=== PATIENT | female | born 1995 | race Caucasian/White ===

== ENCOUNTER 2017-07-25 20:31 | Emergency (ER) | payer BC ==
[~2017-07-25] VITALS: Ht 167.6 cm; Wt 143.0 kg
[2017-07-25] MEDS ORDERED: ONDANSETRON 2MG/ML, 2ML IVPush ONE (21:00)
[2017-07-25] MEDS ORDERED: SODIUM CHLORIDE 0.9% 1,000ML IVBOLUS ONE (21:00)
[2017-07-25] MEDS ORDERED: SODIUM CHLORIDE FLUSH 10ML SYR IVF ONE (21:00)
[2017-07-25 21:12] LABS: RAPID INFLUENZA A Negative (Negative); RAPID INFLUENZA B Negative (Negative)
[2017-07-25 21:17] LABS: BASOPHILS # (AUTO) 0.03 x10^3/uL (0-0.1); BASOPHILS % (AUTO) 0 % (0-1); EOSINOPHILS # (AUTO) 0.02 x10^3/uL (0-0.4); EOSINOPHILS % (AUTO) 0 % (1-7); LYMPHOCYTES # (AUTO) 1.67 x10^3/uL (1-3.4); LYMPHOCYTES % (AUTO) 17 % (22-44); MD NO; MEAN CORPUSCULAR HEMOGLOBIN 26.1 pg (27.0-34.8); MONOCYTES # (AUTO) 0.66 x10^3/uL (0.2-0.8); MONOCYTES % (AUTO) 7 % (2-9); NEUTROPHILS # (AUTO) 7.73 x10^3/uL (1.8-6.8); NEUTROPHILS % (AUTO) 76 % (42-75); PLATELET COUNT 325 x10^3/uL (130-400); RED BLOOD COUNT 5.04 x10^6/uL (3.82-5.3); RED CELL DISTRIBUTION WIDTH 16.4 % (9.6-15.2)
[2017-07-25 21:26] LABS: ALBUMIN 3.6 g/dL (3.4-5.0); ANION GAP 8 mmol/L (5-15); CALCIUM 8.7 mg/dL (8.5-10.1); CHLORIDE 102 mmol/L (98-107); CREATININE 1.02 mg/dL (0.55-1.02)
[2017-07-25] MEDS ORDERED: ZONI100C2 PO (21:47)
[2017-07-25] MEDS ORDERED: METF500T4 PO (21:47)
[2017-07-25] MEDS ORDERED: ONDANSETRON 2MG/ML, 2ML ONE (21:49)
[2017-07-25] MEDS ORDERED: CEFTRIAXONE PMX 1GM/50ML 50 ML ONE (22:22)
[2017-07-25] MEDS ORDERED: CEFTRIAXONE PMX 1GM/50ML 50 ML IVPB ONE (22:30)
[2017-07-25 23:42] VITALS: BP 142/78
== END 2017-07-26 00:04 | disposition home or self-care (01) ==
LOC: ED 23:30
DX: J18.9 Pneumonia, unspecified organism (principal)
CPT/HCPCS: 36415; 71046; 80048; 82040; 85025; 87400; 96361; 96365; 96375; 99285; J0696; J2405; J7030

== ENCOUNTER 2018-05-27 12:34 | Emergency (ER) | payer BC ==
[~2018-05-27] VITALS: Ht 167.6 cm; Wt 131.0 kg
[~2018-05-27 12:34] MED LIST: METF500T17 PO; ZONI100C2 PO
[2018-05-27 12:40] VITALS: BP 153/93
[2018-05-27] MEDS ORDERED: ONDANSETRON ODT 4 MG PO ONE (13:00)
[2018-05-27 13:13] LABS: ANION GAP 6 mmol/L (5-15); CALCIUM 8.8 mg/dL (8.5-10.1); CHLORIDE 105 mmol/L (98-107); CREATININE 0.87 mg/dL (0.55-1.02)
[2018-05-27 13:14] LABS: ALANINE AMINOTRANSFERASE 43 U/L (12-78); ALBUMIN 3.6 g/dL (3.4-5.0)
[2018-05-27 13:18] LABS: ALKALINE PHOSPHATASE 93 U/L (45-117); BILIRUBIN,TOTAL 0.4 mg/dL (0.2-1.0); TOTAL PROTEIN 8.3 g/dL (6.4-8.2)
[2018-05-27 13:23] LABS: BASOPHILS % (AUTO) 0 % (0-1); EOSINOPHILS % (AUTO) 5 % (1-7); LYMPHOCYTES % (AUTO) 19 % (22-44); MEAN CORPUSCULAR HEMOGLOBIN 26.4 pg (27.0-34.8); MEAN CORPUSCULAR HGB CONC 32.9 g/dL (32.4-35.8); MEAN CORPUSCULAR VOLUME 80.1 fL (80-100); MEAN PLATELET VOLUME 9.2 fL (7.4-10.4); MONOCYTES % (AUTO) 5 % (2-9); NEUTROPHILS % (AUTO) 71 % (42-75); PLATELET COUNT 335 x10^3/uL (130-400); RED BLOOD COUNT 4.95 x10^6/uL (3.82-5.3); RED CELL DISTRIBUTION WIDTH 15.7 % (9.6-15.2)
[2018-05-27 13:24] LABS: BASOPHILS # (AUTO) 0.02 x10^3/uL (0-0.1); EOSINOPHILS # (AUTO) 0.31 x10^3/uL (0-0.4); LYMPHOCYTES # (AUTO) 1.22 x10^3/uL (1-3.4); MD NO; MONOCYTES # (AUTO) 0.33 x10^3/uL (0.2-0.8); NEUTROPHILS # (AUTO) 4.46 x10^3/uL (1.8-6.8)
[2018-05-27] MEDS ORDERED: PANT40TA5 PO (13:52)
[2018-05-27] MEDS ORDERED: ONDANSETRON ODT 4 MG ONE (13:54)
[2018-05-27 14:42] LABS: CULTURE INDICATED? YES; MICROSCOPIC INDICATED
== END 2018-05-27 15:01 | disposition home or self-care (01) ==
LOC: ED 14:51
DX: A08.11 Acute gastroenteropathy due to Norwalk agent (principal)
CPT/HCPCS: 36415; 74021; 80053; 81001; 83690; 84703; 85025; 87086; 99284; Q0162

== ENCOUNTER 2018-09-20 19:43 | Emergency (ER) | payer BC ==
[~2018-09-20] VITALS: Ht 167.6 cm; Wt 137.6 kg
[~2018-09-20 19:43] MED LIST changes: +PANT40TA5 PO
[2018-09-20 20:55] LABS: BASOPHILS # (AUTO) 0.03 x10^3/uL (0-0.1); BASOPHILS % (AUTO) 1 % (0-1); EOSINOPHILS # (AUTO) 0.08 x10^3/uL (0-0.4); EOSINOPHILS % (AUTO) 1 % (1-7); LYMPHOCYTES # (AUTO) 1.24 x10^3/uL (1-3.4); LYMPHOCYTES % (AUTO) 22 % (22-44); MD NO; MEAN CORPUSCULAR HEMOGLOBIN 26.1 pg (27.0-34.8); MEAN CORPUSCULAR HGB CONC 33.4 g/dL (32.4-35.8); MEAN PLATELET VOLUME 8.1 fL (7.4-10.4); MONOCYTES # (AUTO) 0.43 x10^3/uL (0.2-0.8); MONOCYTES % (AUTO) 8 % (2-9); NEUTROPHILS # (AUTO) 3.74 x10^3/uL (1.8-6.8); NEUTROPHILS % (AUTO) 68 % (42-75); PLATELET COUNT 285 x10^3/uL (130-400); RED BLOOD COUNT 4.62 x10^6/uL (3.82-5.3); RED CELL DISTRIBUTION WIDTH 16.1 % (9.6-15.2)
[2018-09-20 21:07] LABS: INTERNATIONAL NORMALIZED RATIO 1.02 (0.93-1.1); PROTHROMBIN TIME 10.7 Seconds (9.6-11.5)
[2018-09-20 21:08] LABS: ALANINE AMINOTRANSFERASE 39 U/L (12-78); ALBUMIN 3.4 g/dL (3.4-5.0); ANION GAP 5 mmol/L (5-15); CALCIUM 7.9 mg/dL (8.5-10.1); CHLORIDE 104 mmol/L (98-107); CREATININE 0.78 mg/dL (0.55-1.02)
[2018-09-20 21:11] LABS: ALKALINE PHOSPHATASE 85 U/L (45-117); BILIRUBIN,TOTAL 0.4 mg/dL (0.2-1.0); TOTAL PROTEIN 7.8 g/dL (6.4-8.2)
[2018-09-20 21:46] LABS: HCG UR SG 1.022 (1.003-1.030)
--- NOTE | 2018-09-20 21:50 | NUR ---
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 Pt notes that she was recently treated for bronchitis with cole jerome on saturday she began to develop pain and burning with urination, this has continued with low grade fevers, to urgent care yesterday and she was given macrobid
[2018-09-20 21:51] LABS: MICROSCOPIC INDICATED
[2018-09-20 21:52] LABS: CULTURE INDICATED? YES
[2018-09-20] MEDS ORDERED: ACETAMINOPHEN 325 MG TABLET ONE (22:41)
[2018-09-20] MEDS ORDERED: PHENAZOPYRIDINE 200 MG TABLET ONE (22:41)
--- NOTE | 2018-09-20 22:43 | NUR ---
Pt medicated per MAR.
[2018-09-20] MEDS ORDERED: PHENAZOPYRIDINE 200 MG TABLET PO ONE (23:00)
[2018-09-20] MEDS ORDERED: ACETAMINOPHEN 325 MG TABLET PO ONE (23:00)
[2018-09-20 23:10] VITALS: BP 154/74
== END 2018-09-20 23:38 ==
LOC: ED 21:18
DX: N30.00 Acute cystitis without hematuria (principal); R30.0 Dysuria; J45.909 Unspecified asthma, uncomplicated
CPT/HCPCS: 36415; 80053; 81001; 81025; 83605; 84145; 85025; 85610; 85730; 87040; 87086; 99283

== ENCOUNTER 2019-12-14 08:38 | Emergency (ER) | payer BC ==
[~2019-12-14] VITALS: Ht 167.6 cm; Wt 144.1 kg
[~2019-12-14 08:38] MED LIST changes: -ZONI100C2 PO; +ZONI100C29 PO
--- NOTE | 2019-12-14 09:00 | NUR ---
24 Y/O FEMALE PRESENTS TO ED WITH C/O FRANCIS AND FEVER. PER PT "I'VE HAD A FRANCIS FOR A WEEK. THRUSDAY NIGHT I STARTED GETTING FEVERS. THE HIGHEST HAS BEEN 101.7. THIS MORNING IT BROKE. 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 NO C/O V/D, TRAUMA, SYNCOPE, SOB
[2019-12-14] MEDS ORDERED: HYDROmorphone 1 MG/ML, 1ML INJ IVPush PRN (10:30)
[2019-12-14] MEDS ORDERED: ONDANSETRON 2MG/ML, 2ML IVPush ONE (10:30)
[2019-12-14] MEDS ORDERED: SODIUM CHLORIDE FLUSH 10ML SYR IVF ONE (10:30)
--- NOTE | 2019-12-14 10:31 | NUR ---
readjusted bp cuff to left forearm. bp 158/80 piv established. pt tolerated with no complications. pt resting on gurney. nadn. no needs requested at this time.
--- NOTE | 2019-12-14 10:53 | NUR ---
LATE ENTRY FOR 1040 PT TO IMAGING
--- NOTE | 2019-12-14 10:56 | NUR ---
PT BACK FROM CT
[2019-12-14] MEDS ORDERED: HYDROmorphone 1 MG/ML, 1ML INJ ONE (10:59)
[2019-12-14] MEDS ORDERED: ONDANSETRON 2MG/ML, 2ML ONE (11:00)
[2019-12-14 12:11] VITALS: BP 150/95
--- NOTE | 2019-12-14 12:12 | NUR ---
TASK RN NOTE: PT EDUCATED ON DC INSTRUCTIONS. NAD NOTED AT THIS TIME. MAINTAINING O2 SAT ON RA.
== END 2019-12-14 12:20 | disposition home or self-care (01) ==
LOC: ED 09:12
DX: G43.909 Migraine, unspecified, not intractable, without status migrainosus (principal); Z20.828 Contact with and (suspected) exposure to other viral communicable diseases; R00.0 Tachycardia, unspecified; R94.31 Abnormal electrocardiogram [ECG] [EKG]; I10 Essential (primary) hypertension
CPT/HCPCS: 70450; 93005; 96374; 96375; 99285; J1170; J2405; U0001; 99284